=== PATIENT | female | born 1965 | race Native Hawaiian/Other Pacific Islander ===

== ENCOUNTER 2016-08-20 01:04 | Emergency (ER) | payer BC ==
[~2016-08-20] VITALS: Ht 160 cm; Wt 65.8 kg
[2016-08-20 01:39] LABS: PLATELET COUNT 185 K/uL (152-353)
[2016-08-20 01:42] LABS: POTASSIUM 3.6 mmol/L (3.6-5.2)
[2016-08-20 02:16] VITALS: BP 123/44; TEMP 98.1
== END 2016-08-20 02:17 | disposition home or self-care (01) ==
LOC: ED 01:04
DX: K52.89 Other specified noninfective gastroenteritis and colitis (principal); R11.11 Vomiting without nausea; A08.8 Other specified intestinal infections
CPT/HCPCS: 36415; 80053; 85027; 96360; 96374; 96375; 96376; 99284; J2405; J2550

== ENCOUNTER 2017-05-10 15:00 | Outpatient (CLI) | payer BC | END 2017-05-10 18:20 | disposition home or self-care (01) | LOC: MAMMO 15:00 | DX: Z12.31 Encounter for screening mammogram for malignant neoplasm of breast (principal) ==

== ENCOUNTER 2018-09-21 10:09 | Outpatient (CLI) | payer BC | END 2018-09-21 23:04 | disposition home or self-care (01) | LOC: MAMMO 10:09 | DX: Z12.31 Encounter for screening mammogram for malignant neoplasm of breast (principal) ==

== ENCOUNTER 2020-04-23 15:17 | Outpatient (CLI) | payer BC | END 2020-04-23 22:07 | disposition home or self-care (01) | LOC: MAMMO 15:17 | PROVIDERS: ATTEND Obstetrics & Gynecology | DX: Z12.31 Encounter for screening mammogram for malignant neoplasm of breast (principal) ==

== ENCOUNTER 2021-08-17 09:06 | Outpatient (CLI) | payer BC | END 2021-08-17 18:58 | disposition home or self-care (01) | LOC: MAMMO 09:06 | PROVIDERS: ATTEND Obstetrics & Gynecology | DX: Z12.31 Encounter for screening mammogram for malignant neoplasm of breast (principal); Z13.820 Encounter for screening for osteoporosis; Z78.0 Asymptomatic menopausal state ==

== ENCOUNTER 2022-10-05 15:38 | Outpatient (CLI) | payer BC | END 2022-10-05 20:37 | disposition home or self-care (01) | LOC: MAMMO 15:38 | PROVIDERS: ATTEND Obstetrics & Gynecology | DX: Z12.31 Encounter for screening mammogram for malignant neoplasm of breast (principal) ==